=== PATIENT | female | born 1970 | race Caucasian/White ===

== ENCOUNTER 2016-07-12 00:32 | Observation (INO) | payer BC ==
[2016-07-11 21:18] LABS: BASOPHIL# 0.1 X10e3 (0-0.3); BASOPHIL% 0.7 % (0-2.5); DIFF IND NO; EOSINOPHIL# 0.2 X10e3 (0-0.7); EOSINOPHIL% 1.7 % (0.0-7.0); HEMATOCRIT 39.4 % (35.0-45.0); HEMOGLOBIN 13.1 gm/dL (12.0-16.0); LYMPHOCYTE# 2.2 X10e3 (1.0-3.5); LYMPHOCYTE% 23.9 % (17.0-45.0); MEAN CELL VOLUME 83.5 FL (83-96); MEAN CORPUSCULAR HEMOGLOBIN 27.8 PG (28-34); MEAN CORPUSCULAR HGB CONC 33.3 g/dL (30-36); MONOCYTE# 0.6 X10e3 (0-1.0); MONOCYTE% 6.2 % (3.0-12.0); NEUTROPHIL# 6.1 X10e3 (1.5-7.1); NEUTROPHIL% 67.5 % (40-75); PLATELET COUNT 293 X10e3 (140-420); RED BLOOD COUNT 4.72 X10e (3.90-5.30); RED CELL DISTRIBUTION WIDTH 13.2 % (11.0-15.5); WHITE BLOOD COUNT 9.1 X10e3 (4.0-10.5)
[2016-07-11 21:45] LABS: URINE SOURCE CLEAN CATCH
[2016-07-11 22:13] LABS: URINE APPEARANCE CLOUDY; URINE BILIRUBIN NEG (NEG); URINE BLOOD 2+ (NEG); URINE COLOR YELLOW; URINE GLUCOSE NEG (NEG); URINE KETONE NEG (NEG); URINE LEUKOCYTE ESTERASE 1+ (NEG); URINE NITRATE NEG (NEG); URINE PH 5.5 (5-8); URINE PROTEIN NEG (NEG); URINE SPECIFIC GRAVITY 1.025 (1.003-1.035); URINE UROBILINOGEN 0.2 MG/DL (NEG)
[2016-07-11 22:14] LABS: CULTURE INDICATED? YES; URINE BACTERIA AUWI 4+ (NEGATIVE); URINE SQUAMOUS EPITHELIAL CELL OCC /[HPF]; UWBCS1 AUWI 25-50 (0-5)
[2016-07-11 22:33] LABS: URINE CRYSTALS CALCIUM OXALATE /[HPF]
--- NOTE | ~2016-07-12 | OR ---
Unit #: [id number] #: [id number] Patient: DICKSON MCWILLIAMS [id number] [address] [place], [place] [address] [id number] MR#: [id number] NAME: DICKSON MCWILLIAMS. ROOM: [facility] Date of Procedure: 07/12/2016 Admission Date: 07/12/2016 Surgeon: Kirby Shaver M.D. : 1970 Attending Physician: Arun Jimenez M.D. Primary Care Physician: Jamal Sams M.D. OPERATIVE REPORT PREOPERATIVE DIAGNOSES Right ureteral stone, renal colic, and possible urinary tract infection. POSTOPERATIVE DIAGNOSES Right ureteral stone, renal colic, and possible urinary tract infection. PROCEDURE PERFORMED Cystoscopy, right stent placement. ANESTHESIA General. DESCRIPTION OF PROCEDURE After informed consent, she was taken to the operative room, placed under general anesthetic, positioned in lithotomy. Her vagina and perineum were prepped and draped in usual sterile fashion. Cystoscopy was performed revealing a normal urethra and bladder. The entire bladder was inspected. There were no tumors, no stones, no diverticula. Normal-appearing left and right ureteral orifices. A Sensor wire was placed under fluoroscopy into the right ureter. The stone was visible on fluoroscopy in the distal ureter just above the UVJ. The wire was advanced up into the collecting system. A 5 x 26 double-J stent was placed without a tether in the right ureter. There was good coil in the bladder and collecting system. A urine specimen was obtained. After the stent was placed, the urine was blood tinged. There was no purulent material. Her bladder was drained. Lidocaine jelly was placed inside the urethra. PLAN To return to the floor. She will have eventual treatment of her stone as an outpatient after we confirm adequate treatment of a possible UTI. Dictated by... Delmy Hilario/han TD: 07/12/2016 23:59 JOB #: [id number] Unit #: [id number] #: [id number] Patient: DICKSON MCWILLIAMS OPERATIVE REPORT X Kirby Shaver MD PROCEDURE OPERATIVE NOTE
--- NOTE | ~2016-07-12 | CT4 ---
[facility] A Service of [facility] & [facility] RADIOLOGY TEXT RESULTS PATIENT: DICKSON MCWILLIAMS LOCATION: C2A : 74 UNIT #: [id number] AGE: [address]: Arun Jimenez MD SEX: F ORDER DR: [id number] [facility] [address] [place], [place] [address] [id number] MR#: [id number] Acc #: [id number] NAME: DICKSON MCWILLIAMS. : 1970 SEX: F STUDY DATE/TIME: 07/12/2016 0000 UNIT: A ROOM: 206 STUDY DESCRIPTION: CT Abd and Pelv Wo Cont Attending Physician: Arun Jimenez M.D. Ordering Physician: Binh Higgins M.D. Primary Care Physician: Jamal Sams M.D. MEDICAL IMAGING REPORT This report is preliminary unless electronic signature is present EXAM CT abdomen and pelvis 07/12 at 0000 hours. INDICATION Right flank pain with nausea, vomiting, and diarrhea that started at 6 o'clock on 07/11/2016. History of kidney stones. TECHNIQUE Axial images were obtained through the abdomen and pelvis without contrast. Multiplanar reformats were obtained. This CT exam was performed with one or more of the following radiation dose reduction techniques: automatic exposure control, adjustment of mA and/or kV according to patient size, and iterative reconstruction. COMPARISON STUDIES Comparison made with 05/14/2013. FINDINGS ABDOMEN: The lung bases are clear. There is moderate left hydronephrosis and hydroureter secondary to a 8 mm stone at the right ureterovesical junction. No other ureteral stones are seen on either side. There is a small nonobstructing stone in the left kidney. The unenhanced solid organs are otherwise normal. The gallbladder is unremarkable. The unopacified GI tract is normal. PELVIS: The appendix is normal as is the remainder of the unopacified GI tract. No additional ureteral stones are seen. The solid pelvic organs are normal. No free fluid. The bladder is normal. IMPRESSION 1. Moderate right hydronephrosis and hydroureter secondary to a 8 mm stone at the right ureterovesical junction. [facility] A Service of [facility] & [facility] RADIOLOGY TEXT RESULTS PATIENT: DICKSON MCWILLIAMS LOCATION: [facility] 206- : 74 UNIT #: [id number] AGE: [address]: Arun Jimenez MD SEX: F ORDER DR: 2. Tiny nonobstructing stone in the left kidney. 3. The rest of the abdomen and pelvis CT is normal. Dictated by... Arun Jackson Jr., M.D. THIS IS AN ELECTRONICALLY VERIFIED REPORT Arun Jackson Jr., M.D. at 07/12/2016 9:59 PM WANG/evelia TD: 07/12/2016 10:32 JOB #: [id number] MEDICAL IMAGING REPORT COPY
[2016-07-12 01:18] LABS: CALCIUM SERUM 8.7 mg/dL (8.4-10.2); CREATININE SERUM 1.1 mg/dL (0.6-1.4); GLOM FILT RATE Estimated 57.6 mL/min (>60); POTASSIUM 3.8 mmol/L (3.5-5.1)
[2016-07-12] MEDS ORDERED: BIRTH CONTROL PILL PO (01:38)
[2016-07-12] MEDS ORDERED: ZOLOFT100 MG PO (01:38)
[2016-07-12 20:20] LABS: URINE APPEARANCE CLOUDY; URINE BILIRUBIN NEG (NEG); URINE BLOOD 3+ (NEG); URINE COLOR YELLOW; URINE GLUCOSE NEG (NEG); URINE KETONE NEG (NEG); URINE LEUKOCYTE ESTERASE 1+ (NEG); URINE NITRATE NEG (NEG); URINE PH 5.5 (5-8); URINE PROTEIN 2+ (NEG); URINE SPECIFIC GRAVITY 1.021 (1.003-1.035); URINE UROBILINOGEN 0.2 MG/DL (NEG)
[2016-07-12 20:23] LABS: CULTURE INDICATED? YES; URBCS1 AUWI INNUM /[HPF] (0-2); URINE BACTERIA AUWI NEG (NEGATIVE); URINE SQUAMOUS EPITHELIAL CELL OCC /[HPF]; UWBCS1 AUWI 25-50 (0-5)
[2016-07-13] MEDS ORDERED: PERCOCET 5/321 UDTAB PO (15:56)
[2016-07-13] MEDS ORDERED: KEFLEX500 MG PO (15:56)
== END 2016-07-13 16:16 | disposition home or self-care (01) | DRG 694 ==
LOC: CED 00:32 → CEDOF 01:50 → C2A 08:45
PROVIDERS: Emergency Medicine; Urology
DX: N13.2 Hydronephrosis with renal and ureteral calculous obstruction (principal); Z87.442 Personal history of urinary calculi; J45.909 Unspecified asthma, uncomplicated; K21.9 Gastro-esophageal reflux disease without esophagitis; Z88.0 Allergy status to penicillin
CPT/HCPCS: 36415; 74176; 80048; 81003; 84703; 85025; 87086; 96365; 96375; 96376; 99285; C2617; G0378; J0696; J1170; J2250; J2270; J2405; J3010

== ENCOUNTER → 2016-07-22 | Day surgery (SDC) | payer BC ==
[~2016-07-22] MED LIST: BIRTH CONTROL PILL PO; KEFLEX500 MG PO; PERCOCET 5/321 UDTAB PO; ZOLOFT100 MG PO
--- NOTE | ~2016-07-22 | OR ---
Unit #: [id number] #: [id number] Patient: DICKSON MCWILLIAMS [id number] [address] [place], [place] [address] [id number] MR#: [id number] NAME: DICKSON MCWILLIAMS ROOM: Date of Procedure: 07/22/2016 Admission Date: 07/22/2016 Surgeon: Kirby Shaver M.D. : 1970 Attending Physician: Kirby Shaver M.D. Primary Care Physician: Jamal Sams M.D. OPERATIVE REPORT PREOPERATIVE DIAGNOSIS Right ureteral stone. POSTOPERATIVE DIAGNOSIS Right ureteral stone. PROCEDURE PERFORMED Right ureteroscopy, laser lithotripsy, basket extraction, stent replacement. DESCRIPTION OF PROCEDURE After informed consent, the patient was taken to the operating room, placed under general anesthetic, positioned in lithotomy. Her vagina and perineum were prepped and draped in usual sterile fashion. Cystoscopy was performed showing a normal urethra. There were no tumors, no stones, no diverticula. She had a stent exiting the right ureter. The entire bladder was inspected. The stent was pulled out to the meatus with a grasper. The wire was placed inside the stent and the stent was removed alongside the wire. Rigid ureteroscopy was performed and the stone was encountered in the distal ureter. Using the holmium laser, the stone was broken up into smaller pieces. These pieces were then extracted using a Nitinol basket without difficulty. Inspection of the ureter proximal to the stone showed no other stone fragments. A new stent was placed. It was 5 x 26 with a tether attached. There was a good coil in the bladder and collecting system. Her bladder was drained. She will be taken to recovery. She will return to see me in approximately a week for stent removal. She tolerated the procedure well. Dictated by... Delmy Hilario/han TD: 07/23/2016 02:07 JOB #: [id number] Unit #: [id number] #: [id number] Patient: DICKSON MCWILLIAMS OPERATIVE REPORT X Kirby Sahver MD PROCEDURE OPERATIVE NOTE
== END | disposition home or self-care (01) ==
LOC: CSUR 05:46
PROVIDERS: Urology
DX: N20.1 Calculus of ureter (principal); Z90.89 Acquired absence of other organs; J45.909 Unspecified asthma, uncomplicated; Z87.19 Personal history of other diseases of the digestive system; Z88.0 Allergy status to penicillin
CPT/HCPCS: 82365; 84703; 88300; C2617; J0690; J1885; J2250; J2405; J3010

== ENCOUNTER 2016-09-11 08:56 | Emergency (ER) | payer BC ==
--- NOTE | ~2016-09-11 | CR4 ---
[facility] A Service of [facility] & [facility] RADIOLOGY TEXT RESULTS PATIENT: DICKSON MCWILLIAMS LOCATION: [facility] : 74 UNIT #: [id number] AGE: [address]: Kelly Wilson MD SEX: F ORDER DR: [id number] [facility] [address] [place], [place] [address] [id number] MR#: [id number] Acc #: [id number] NAME: DICKSON MCWILLIAMS : 1970 SEX: F STUDY DATE/TIME: 09/11/2016 8:45 UNIT: [facility] ROOM: STUDY DESCRIPTION: CR Abdomen Flat Upright or Dec Attending Physician: Kelly Wilson M.D. Ordering Physician: Kelly Wilson M.D. Primary Care Physician: Jamal Sams M.D. MEDICAL IMAGING REPORT This report is preliminary unless electronic signature is present EXAM Abdomen 09/11/2016 HISTORY 46-year-old female with left-sided abdominal pain and flank pain beginning yesterday. COMPARISON CT abdomen and pelvis 07/12/2016 FINDINGS 3 frontal flat and upright views of the abdomen were performed. The bowel gas pattern is nonobstructive. No free intraperitoneal air. No visible calcifications projecting over the renal shadows or expected courses of either ureter. No basilar lung pathology. IMPRESSION No acute abdominal findings. Dictated by... Jono Jon M.D. THIS IS AN ELECTRONICALLY VERIFIED REPORT Jono Jon M.D. at 09/12/2016 4:45 PM BETHANY/jenni TD: 09/11/2016 09:10 JOB #: [id number] MEDICAL IMAGING REPORT Page 1 of 1 COPY
[2016-09-11 08:36] LABS: URINE SOURCE CLEAN CATCH
[2016-09-11 08:40] LABS: URINE APPEARANCE CLEAR; URINE BILIRUBIN NEG (NEG); URINE BLOOD 2+ (NEG); URINE COLOR YELLOW; URINE GLUCOSE NEG (NEG); URINE KETONE TRACE (NEG); URINE LEUKOCYTE ESTERASE NEG (NEG); URINE NITRATE NEG (NEG); URINE PROTEIN NEG (NEG); URINE SPECIFIC GRAVITY 1.035 (1.003-1.035)
[2016-09-11 08:43] LABS: CULTURE INDICATED? YES; URINE BACTERIA AUWI 1+ (NEGATIVE); URINE SQUAMOUS EPITHELIAL CELL OCC /[HPF]
[2016-09-11 08:49] LABS: BASOPHIL% 0.3 % (0-2.5); EOSINOPHIL# 0.1 X10e3 (0-0.7); EOSINOPHIL% 0.8 % (0.0-7.0); HEMATOCRIT 39.2 % (35.0-45.0); LYMPHOCYTE# 1.7 X10e3 (1.0-3.5); LYMPHOCYTE% 15.1 % (17.0-45.0); MEAN CELL VOLUME 85.8 FL (83-96); MEAN CORPUSCULAR HEMOGLOBIN 28.4 PG (28-34); MEAN CORPUSCULAR HGB CONC 33.1 g/dL (30-36); MEAN PLATELET VOLUME 8.5 FL (6.5-11.5); MONOCYTE# 0.8 X10e3 (0-1.0); MONOCYTE% 7.2 % (3.0-12.0); NEUTROPHIL# 8.5 X10e3 (1.5-7.1); NEUTROPHIL% 76.6 % (40-75); PLATELET COUNT 229 X10e3 (140-420); RED BLOOD COUNT 4.56 X10e (3.90-5.30); RED CELL DISTRIBUTION WIDTH 13.4 % (11.0-15.5); WHITE BLOOD COUNT 11.2 X10e3 (4.0-10.5)
[2016-09-11 08:51] LABS: DIFF IND NO
[2016-09-11 09:29] LABS: ALBUMIN SERUM 3.6 g/dL (3.5-5.0); BILIRUBIN, DIRECT 0.1 mg/dL (0.0-0.2); BILIRUBIN,INDIRECT 0.5 mg/dL (0.0-0.9); BILIRUBIN,TOTAL 0.6 mg/dL (0.2-2.0); BUN/CREATININE RATIO 8.57; CALCIUM SERUM 8.8 mg/dL (8.4-10.2); CREATININE SERUM 1.4 mg/dL (0.6-1.4); GLOM FILT RATE Estimated 45.6 mL/min (>60); POTASSIUM 3.8 mmol/L (3.5-5.1); PROTEIN TOTAL SERUM 6.9 g/dL (6.0-8.3)
== END 2016-09-11 10:20 | disposition home or self-care (01) ==
LOC: CED 08:56
PROVIDERS: Student in an Organized Health Care Education/Training Program
DX: R10.9 Unspecified abdominal pain (principal); R11.2 Nausea with vomiting, unspecified; Z87.442 Personal history of urinary calculi; Z98.890 Other specified postprocedural states; Z88.0 Allergy status to penicillin
CPT/HCPCS: 36415; 74020; 80048; 80076; 81003; 82150; 83690; 84703; 85025; 87086; 96361; 96374; 96375; 99284; J1885; J2405